=== PATIENT | male | born 1970 | race American Indian/Alaskan Native ===

== ENCOUNTER 2021-01-27 07:32 | Emergency (ER) | payer MEDICAID, OTHER ==
[2021-01-27 07:51] VITALS: BP 164/103
[2021-01-27] MEDS ORDERED: FAMOTIDINE 20 MG TAB PO ONE (08:50)
[2021-01-27] MEDS ORDERED: ONDANSETRON 4 MG ODT TAB PO ONE (08:50)
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
== END 2021-01-27 10:52 | disposition home or self-care (01) ==
LOC: ED 07:32
DX: M79.601 Pain in right arm (principal); I10 Essential (primary) hypertension; E11.9 Type 2 diabetes mellitus without complications; Z91.14 Patient's other noncompliance with medication regimen; J44.9 Chronic obstructive pulmonary disease, unspecified; F17.200 Nicotine dependence, unspecified, uncomplicated
CPT/HCPCS: 82962; Q0162